=== PATIENT | male | born 1980 | race Caucasian/White ===

== ENCOUNTER 2016-10-25 15:30 | Inpatient (IN) | payer OTHER ==
[~2016-10-25] VITALS: Ht 180.3 cm; Wt 66.4 kg
[2016-10-25 17:30] LABS: BASOPHIL % 0.5 % (0-2); PLATELET COUNT 256 x10^3mcL (130-400); RED CELL DISTRIBUTION WIDTH 14.1 % (11.5-14.5)
[2016-10-25 18:02] LABS: CALCIUM 8.5 mg/dL (8.5-10.1); CARBON DIOXIDE 24.4 mmol/L (21-32); CHLORIDE SERUM 109 mmol/L (98-107); CREATININE SERUM 1.1 mg/dL (0.7-1.3); GFR1 > 60 mL/min; GLUCOSE SERUM 93 mg/dL (74-106); POTASSIUM SERUM 3.7 mmol/L (3.5-5.1); SODIUM SERUM 144 mmol/L (136-145)
[2016-10-25 18:17] LABS: ALBUMIN 3.5 g/dL (3.4-5.0); ALKALINE PHOSPHATASE 53 U/L (46-116); ALT/SGPT 29 U/L (16-63); AST/SGOT 38 U/L (15-37); BILIRUBIN TOTAL 0.4 mg/dL (0.20-1.00); TOTAL PROTEIN, SERUM 7.1 g/dL (6.4-8.2)
[2016-10-25 18:45] LABS: T4(THYROXINE) 7.7 ug/dL (4.7-13.3)
[2016-10-25 19:25] LABS: AMPHETAMINE QUAL UR POSITIVE (NEG <=1000)
[2016-10-26 00:21] LABS: MAGNESIUM 2.2 mg/dL (1.8-2.4); PHOSPHOROUS 3.5 mg/dL (2.5-4.9)
[2016-10-26 00:21] LABS: UA SPECIFIC GRAVITY 1.025 (1.005-1.035); microscopic required? YES; urine erythrocyte 1+ (NEGATIVE)
[2016-10-26 00:26] LABS: CHOLESTEROL/HDL RATIO 2.3
[2016-10-26] MEDS ORDERED: GENVOYA TABLET1 EACH PO (00:27)
[2016-10-26] MEDS ORDERED: DEPAKOTE ER500 MG PO (00:28)
[2016-10-26 00:48] LABS: FREE T4 1.22 ng/dL (0.76-1.46); FREE THYROXINE INDEX 2.5 ug/dL (1.4-4.5); T4(THYROXINE) 6.7 ug/dL (4.7-13.3)
[2016-10-26 01:04] VITALS: BP 108/64
[2016-10-26 01:07] VITALS: Ht 180.3 cm; Wt 66.4 kg
[2016-10-26 06:08] LABS: BASOPHIL % 0.7 % (0-2); PLATELET COUNT 228 x10^3mcL (130-400); RED CELL DISTRIBUTION WIDTH 13.9 % (11.5-14.5)
[2016-10-26 06:43] LABS: CALCIUM 8.3 mg/dL (8.5-10.1); CARBON DIOXIDE 26.4 mmol/L (21-32); CHLORIDE SERUM 109 mmol/L (98-107); CREATININE SERUM 0.9 mg/dL (0.7-1.3); GFR1 > 60 mL/min; GLUCOSE SERUM 100 mg/dL (74-106); POTASSIUM SERUM 4.2 mmol/L (3.5-5.1); SODIUM SERUM 145 mmol/L (136-145)
[2016-10-26 09:30] VITALS: BP 111/68
[2016-10-26 11:59] LABS: T3 TOTAL 1.08 ng/mL
[2016-10-26 14:40] VITALS: BP 103/52
[2016-10-26 16:17] VITALS: BP 107/59
[2016-10-26 21:56] VITALS: BP 125/43
[2016-10-27 06:20] LABS: BASOPHIL % 0.4 % (0-2); PLATELET COUNT 238 x10^3mcL (130-400); RED CELL DISTRIBUTION WIDTH 14.2 % (11.5-14.5)
[2016-10-27 06:38] LABS: CALCIUM 8.4 mg/dL (8.5-10.1); CARBON DIOXIDE 27.7 mmol/L (21-32); CHLORIDE SERUM 108 mmol/L (98-107); CREATININE SERUM 0.8 mg/dL (0.7-1.3); GFR1 > 60 mL/min; GLUCOSE SERUM 82 mg/dL (74-106); POTASSIUM SERUM 4.5 mmol/L (3.5-5.1); SODIUM SERUM 143 mmol/L (136-145)
== END 2016-10-27 06:00 | disposition left against medical advice (07) | DRG 770 ==
LOC: ED 15:30 → DU 23:24
PROVIDERS: Emergency Medicine; Family Medicine; ADMIT Family Medicine
DX: F16.121 Hallucinogen abuse with intoxication with delirium (principal); N17.0 Acute kidney failure with tubular necrosis; G92 Toxic encephalopathy; B20 Human immunodeficiency virus [HIV] disease; R45.851 Suicidal ideations; T40.994A Poisoning by other psychodysleptics [hallucinogens], undetermined, initial encounter; F15.10 Other stimulant abuse, uncomplicated; K72.90 Hepatic failure, unspecified without coma; G40.909 Epilepsy, unspecified, not intractable, without status epilepticus; D53.9 Nutritional anemia, unspecified; Y92.018 Other place in single-family (private) house as the place of occurrence of the external cause; Z68.20 Body mass index [BMI] 20.0-20.9, adult; F25.0 Schizoaffective disorder, bipolar type
CPT/HCPCS: 83880; 84439; G0480; J1630; J2060; J2270; J7030; Q0092